=== PATIENT | female | born 1935 | race Caucasian/White ===

== ENCOUNTER 2020-08-07 19:40 | Emergency (ER) | payer OTHER ==
[~2020-08-07] VITALS: Ht 157.5 cm; Wt 68.0 kg
[2020-08-07] MEDS ORDERED: RESTORIL30 M1 (19:56)
[2020-08-07] MEDS ORDERED: LOSARTAN POTASS25 MG (19:57)
[2020-08-07] MEDS ORDERED: LASIX20 MG (19:57)
[2020-08-07] MEDS ORDERED: PENTOXIFYLLINE400 MG (19:57)
[2020-08-07] MEDS ORDERED: RENAL VITAMIN0.8 MG (19:58)
[2020-08-07] MEDS ORDERED: ATORVASTATIN CA40 MG (19:58)
[2020-08-07] MEDS ORDERED: BUSPIRONE HCL7.5 MG (19:59)
[2020-08-07] MEDS ORDERED: RAZADYNE ER24 MG (19:59)
[2020-08-07] MEDS ORDERED: VITAMIN B-125000 MC1 (20:00)
[2020-08-07] MEDS ORDERED: FOLIC ACID0.8 M1 (20:00)
== END 2020-08-07 23:05 | disposition home or self-care (01) ==
LOC: ER 19:40
DX: S32.511A Fracture of superior rim of right pubis, initial encounter for closed fracture (principal); S32.591A Other specified fracture of right pubis, initial encounter for closed fracture; S80.02XA Contusion of left knee, initial encounter; S80.01XA Contusion of right knee, initial encounter; W18.09XA Striking against other object with subsequent fall, initial encounter; Y93.89 Activity, other specified; Y92.128 Other place in nursing home as the place of occurrence of the external cause; Y99.8 Other external cause status

== ENCOUNTER 2022-04-11 07:48 | Inpatient (IN) | payer OTHER ==
[~2022-04-11] VITALS: Ht 167.6 cm; Wt 63.5 kg
[~2022-04-11 07:48] MED LIST: ATORVASTATIN CA40 MG; BUSPIRONE HCL7.5 MG; FOLIC ACID0.8 M1; LASIX20 MG; LOSARTAN POTASS25 MG; PENTOXIFYLLINE400 MG; RAZADYNE ER24 MG; RENAL VITAMIN0.8 MG; RESTORIL30 M1; VITAMIN B-125000 MC1
== END 2022-04-19 20:28 | disposition expired | DRG 689 ==
LOC: ER 07:48 → MEDI 18:54
PROVIDERS: ADMIT Internal Medicine; ATTEND Internal Medicine
PROC: BW2 Imaging, Anatomical Regions, Computerized Tomography (CT Scan) (ICD-10-PCS; 2022-04-11)
PROC: 5A0955A Assistance with Respiratory Ventilation, Greater than 96 Consecutive Hours, High Flow/Velocity Cannula (ICD-10-PCS; 2022-04-11)
PROC: B246YZZ Ultrasonography of Right and Left Heart using Other Contrast (ICD-10-PCS; 2022-04-12)
PROC: 4A12X4Z Monitoring of Cardiac Electrical Activity, External Approach (ICD-10-PCS; 2022-04-12)
PROC: 02HV33Z Insertion of Infusion Device into Superior Vena Cava, Percutaneous Approach (ICD-10-PCS; principal; 2022-04-19)
PROC: 5A09357 Assistance with Respiratory Ventilation, Less than 24 Consecutive Hours, Continuous Positive Airway Pressure (ICD-10-PCS; 2022-04-19)
DX: N39.0 Urinary tract infection, site not specified (principal); A41.89 Other specified sepsis; J69.0 Pneumonitis due to inhalation of food and vomit; J96.01 Acute respiratory failure with hypoxia; N17.8 Other acute kidney failure; E87.2 Acidosis; K92.2 Gastrointestinal hemorrhage, unspecified; E16.1 Other hypoglycemia; I25.10 Atherosclerotic heart disease of native coronary artery without angina pectoris; R77.8 Other specified abnormalities of plasma proteins; J44.9 Chronic obstructive pulmonary disease, unspecified; B96.29 Other Escherichia coli [E. coli] as the cause of diseases classified elsewhere; R00.0 Tachycardia, unspecified; Z78.1 Physical restraint status